=== PATIENT | female | born 1990 | race Caucasian/White ===

== ENCOUNTER 2016-05-15 06:09 | Day surgery (SDC) | payer MEDICAID ==
[2016-05-14 10:38] VITALS: BMI 34.3
--- NOTE | 2016-05-14 14:59 | PREOPHP ---
DATE OF ADMISSION: 05/15/2016 HISTORY OF PRESENT ILLNESS: Ms. Janeth Garcia is a 26-year-old 4, para 3, desires permanen t surgical sterilization. PAST MEDICAL HISTORY: None. MEDICATIONS: None. PAST SURGICAL HISTORY: Laparoscopic cholecystectomy. OBSTETRICAL HISTORY: x3 vaginal deliveries, last delivery performed in 08/2014, x1 missed AB. GYNECOLOGIC HISTORY: 11, irregular 7 days. Sexually active with 1 partner. Denies any sexually tr ansmitted infections. SOCIAL HISTORY: Denies any smoking, drugs or alcohol. FAMILY HISTORY: Mother with breast cancer diagnosed at age 59. PHYSICAL EXAMINATION: HEENT: Within normal. LUNGS: CTA bilateral. CARDIOVASCULAR: S1, S2, regular rhythm. ABDOMEN: Soft, nontender, negative distention, negative mass. EXTREMITIES: Negative edema. No calf tenderness. VAGINAL: Normal external genitalia. Cervix negative CMT, negative lesions. Adnexa negative mass, nontender bilateral. Fundus within normal limits. ASSESSMENT: Multiparity, desires permanent surgical sterilization. PLAN: Consent for laparoscopic tubal sterilization. Risks, benefits and alternatives explained. A ll questions were answered. Dictated By: PRASHANTH SERRANO/VIKASH Conf#: [id number] DID#: [id number]
[2016-05-15] VITALS (10 sets, daily range): BP systolic 100–140; BP diastolic 59–79; PULSE 72–85; RESP 16–20; Ht 157.5 cm; Wt 87.7 kg
[~2016-05-15] VITALS: Ht 157.5 cm; Wt 87.7 kg
[~2016-05-15 06:09] MED LIST: LACTATED RINGER'S 1,000 ML IV SCH
[2016-05-15] MEDS ORDERED: CLINDAMYCIN 900 MG/50 ML D5W IVPB IVPB ONE (07:00)
[2016-05-15] MEDS ORDERED: EXEDRINE (07:01)
[2016-05-15 07:03] LABS: ADD SCAN DIFF NO
[2016-05-15 07:09] LABS: BASOPHILS % 0.3 % (0.0-2.0); EOSINOPHILS # 0.1 10^3/ul (0.0-0.5); EOSINOPHILS % 1.3 % (0.0-7.0); HEMOGLOBIN 10.9 g/dl (12.0-16.0); LYMPHOCYTES # 2.6 10^3/ul (0.8-2.9); LYMPHOCYTES % 37.9 % (15.0-51.0); MEAN CORPUSCULAR HEMOGLOBIN 26.7 pg (29.0-33.0); MEAN CORPUSCULAR HGB CONC 31.1 g/dl (32.0-37.0); MEAN CORPUSCULAR VOLUME 85.8 fl (82.0-101.0); MEAN PLATELET VOLUME 10.8 fl (7.4-10.4); MONOCYTE # 0.5 10^3/ul (0.3-0.9); MONOCYTES % 6.9 % (0.0-11.0); NEUTROPHIL # 3.7 10^3/ul (1.6-7.5); NEUTROPHILS % 53.3 % (39.0-77.0); PLATELET COUNT 248 10^3/UL (140-415); RED BLOOD COUNT 4.08 10^6/ul (4.20-5.40); RED CELL DISTRIBUTION WIDTH 13.2 % (11.5-14.5)
[2016-05-15] MEDS ORDERED: MIDAZOLAM 1 MG/ML 2 ML INJ ONE (07:58)
[2016-05-15] MEDS ORDERED: ONDANSETRON 4 MG INJ ONE (07:58)
[2016-05-15] MEDS ORDERED: FENTAnyl 50 MCG/ML VIAL ONE (07:58)
[2016-05-15] MEDS ORDERED: PROPOFOL 20 ML ONE (07:58)
[2016-05-15] MEDS ORDERED: ROCURONIUM 50 MG INJ ONE (07:58)
[2016-05-15] MEDS ORDERED: DEXAMETHASONE 4 MG/ML 1 ML INJ ONE (07:59)
[2016-05-15] MEDS ORDERED: MEPERIDINE 25 MG INJ IV PRN (08:30)
[2016-05-15] MEDS ORDERED: FENTAnyl 50 MCG/ML VIAL IV PRN (08:30)
[2016-05-15] MEDS ORDERED: DIPHENHYDRAMINE 50 MG INJ IV PRN (08:30)
[2016-05-15] MEDS ORDERED: EPHEDrine SULFATE 50 MG/5 ML SYG IV PRN (08:30)
[2016-05-15] MEDS ORDERED: ONDANSETRON 4 MG INJ IV PRN (08:30)
[2016-05-15] MEDS ORDERED: HYDROmorphONE (0.2 MG/ML) 10ML SYG IV PRN ×3 (08:30)
[2016-05-15] MEDS ORDERED: NEOSTIGMINE 3 MG/3 ML SYRINGE ONE (08:49)
[2016-05-15] MEDS ORDERED: GLYCOPYRROLATE 0.4 MG INJ ONE (08:49)
[2016-05-15] MEDS ORDERED: PHENYLephrine (100 MCG/ML) 5ML SYG ONE (08:50)
--- NOTE | 2016-05-15 09:06 | PDOCDIS ---
Discharge Instructions CONDITION Patient Condition: Fair HOME CARE INSTRUCTIONS: Diet Instructions: Regular ACTIVITY: Activity Restrictions: Avoid heavy lifting No Sexual Activity FOLLOW UP/APPOINTMENTS Appointments f/u office in 2 weeks PRASHANTH NUNES MD May 15, 2016 09:06
--- NOTE | 2016-05-15 10:54 | OPR ---
DATE OF OPERATION: 05/15/2016 PREOPERATIVE DIAGNOSIS: Multiparity, desires permanent sterilization. POSTOPERATIVE DIAGNOSIS: Multiparity, desires permanent sterilization. PROCEDURE PERFORMED: Laparoscopic tubal fulguration. SURGEON: Prashanth Morales MD CAN VACUUM TESTER: None. ANESTHESIA: General. COMPLICATIONS: None. ESTIMATED BLOOD LOSS: 10 mL. FINDINGS: Normal uterus, tubes and ovaries. DESCRIPTION OF PROCEDURE: After explaining the risks, benefits and alternatives with the patient in cluding risk of failure with increased risk of ectopic gestation if occurs, the patient wa s taken to the operating room where general anesthesia was obtained without difficulty. The patient was then examined under anesthesia and found to have a small anteverted uterus with normal adnexa. She was then placed in a dorsal lithotomy position and prepared and draped in a sterile fashion. A heavy weighted speculum was then placed in the patient's vagina and the anterior lip of the cervix was grasped with a single-tooth tenaculum. A HUMI uterine manipulator was then advanced into the ut erus to provide means to manipulate the uterus. The speculum was removed from the vagina. Attention was then turned to the patient's abdomen, where a 5 mm skin incision was made in the umbil ical fold. The Veress needle was carefully introduced into the peritoneal cavity at a 45-degree ang le while tenting the abdominal wall. Intraperitoneal placement was confirmed with the use of water- filled syringe and drop in intra-abdominal pressure with insufflation of CO2 gas. The trocar and sl eeve were advanced without difficulty into the abdomen, where intra-abdominal placement was confirme d by the laparoscope. Pneumoperitoneum was obtained with 4 liters of CO2 gas. Another 5 mm trocar and sleeve were then advanced without difficulty into the abdomen, where intra-abdominal placement w as confirmed by laparoscope. A second skin incision was made 2 cm above the symphysis pubis in the midline. The second trocar and sleeve were then advanced under direct visualization. A survey of t he patient's pelvis and abdomen revealed entirely normal anatomy. A bipolar was used to fulgurate t he right and left fallopian tubes at multiple areas of the ampullary and isthmus portions of the fal lopian tubes. There was no bleeding noted. The instruments were then removed from the patient's abdomen and the incision was repaired with 3-0 Vicryl. The HUMI was then removed from the vagina with no bleeding noted from the cervix. The aleena ent tolerated the procedure well. Sponge, lap and needle counts correct x2. The patient was taken to recovery room in stable condition. Dictated By: PRASHANTH SERRANO/VIKASH Conf#: [id number] DID#: [id number]
== END 2016-05-15 11:10 | disposition home or self-care (01) ==
LOC: SDS 06:09
PROVIDERS: ATTEND Obstetrics & Gynecology
DX: Z30.2 Encounter for sterilization (principal); E66.9 Obesity, unspecified; Z68.35 Body mass index [BMI] 35.0-35.9, adult; D64.9 Anemia, unspecified
CPT/HCPCS: 58670; 85025; 86850; 86900; 86901; J1100; J2250; J2405; J3010; Z7512; Z7610; J2370; J2710